=== PATIENT | female | born 1980 | race Caucasian/White ===

== ENCOUNTER 2018-02-03 20:18 | Emergency (ER) | payer SELFPAY ==
[2018-02-03 20:57] VITALS: PULSE 84; RESP 20; TEMP 98.9; O2SAT 99
--- NOTE | 2018-02-03 21:45 | C.PDOC ---
History Of Present Illness 37 y/o female with history of HTN presents to ED with complaints of sore throat and cough for 1 week. Also notes redness to the right eye today. Patient states she saw her PMD for symptoms last week, diagnosed with HTN though no medication given for HTN. Patient states she received cough medicine but symptoms have not improved. Denies fever, headache, chest pain, sob, abdominal pain, UTI symptoms or any other complaints at this time. Time Seen by Provider: 02/03/18 21:30 Chief Complaint (Nursing): Flu-like Symptoms History Per: Patient History/Exam Limitations: no limitations Onset/Duration Of Symptoms: Days Current Symptoms Are (Timing): Still Present Location Of Pain: Throat Associated Symptoms: Sore Throat, Cough Past Medical History Reviewed: Historical Data, Nursing Documentation, Vital Signs Vital Signs: Last Vital Signs Temp 98.9 F 02/03/18 20:48 Pulse 84 02/03/18 20:48 Resp 20 02/03/18 20:48 BP 161/97 H 02/03/18 22:23 Pulse Ox 99 02/08/18 18:21 - Medical History PMH: No Chronic Diseases Surgical History: No Surg Hx Family History: States: No Known Family Hx - Social History Hx Alcohol Use: No Hx Substance Use: No Review Of Systems Constitutional: Negative for: Fever, Chills Eyes: Positive for: Conjunctivae Inflammation, Redness ENT: Positive for: Throat Pain Cardiovascular: Negative for: Chest Pain Respiratory: Positive for: Cough. Negative for: Shortness of Breath Gastrointestinal: Negative for: Nausea, Vomiting Physical Exam - Physical Exam Appears: Non-toxic, No Acute Distress Skin: Warm, Dry, No Rash Head: Atraumatic, Normacephalic Eye(s): bilateral: PERRL, EOMI, right: Other (Conjunctiva injection w/purulent discharge) Ear(s): Bilateral: Normal Nose: Normal Oral Mucosa: Moist Throat: Erythema, No Exudate, No Drooling Neck: Normal ROM, Supple Lymphatic: Normal Exam Chest: Symmetrical Cardiovascular: Rhythm Regular Respiratory: Normal Breath Sounds, No Rales, No Rhonchi, No Wheezing Gastrointestinal/Abdominal: Soft, No Tenderness, No Guarding, No Rebound Neurological/Psych: Oriented x3, Normal Speech, Normal Cognition ED Course And Treatment O2 Sat by Pulse Oximetry: 99 (RA) Pulse Ox Interpretation: Normal Progress Note: On re-evaluation, pt is afebrile . No respiratory distress. NEck supple. No visual changes. ToleratingPO. Discussed with pt untreated HTN risks and pt verbalized understanding. Instructed strict follow up with PMD in 1-2 days or return to ER if symtpoms persist or worsen. Wrapper Stemmer Operator used to ensure understanding. Disposition - Disposition Disposition: HOME/ ROUTINE Disposition Time: 22:11 Condition: STABLE Additional Instructions: Vilma un seguimiento con el pediatra en 1-2 south. Asegrese de volver a verificar carr presin arterial, la presin arterial kiki no tratada aumentar carr riesgo de enfermedad cardaca, diabetes y accidente cerebrovascular. Regrese a la og de emergencias si los sntomas persisten o empeoran. Prescriptions: Amoxicillin 875 mg PO BID #14 tablet Ibuprofen [Motrin] 600 mg PO Q6 PRN #20 tab PRN Reason: Pain, Mild (1-3) Tobramycin [Tobrex] 2 drop OU Q4 5 Days drops Instructions: Sore Throat, Adult (DC) Forms: [place] (Occitan) Print Language: LATVIAN - Clinical Impression Clinical Impression: Conjunctivitis, Pharyngitis - PA / GRAIN PROCESSOR / Resident Statement MD/DO has reviewed & agrees with the documentation as recorded. - Scribe Statement The provider has reviewed the documentation as recorded by the Suibolivier Martinez All medical record entries made by the Suibolivier were at my direction and personally dictated by me. I have reviewed the chart and agree that the record accurately reflects my personal performance of the history, physical exam, medical decision making, and the department course for this patient. I have also personally directed, reviewed, and agree with the discharge instructions and disposition.
[2018-02-03 22:23] VITALS: BP 161/97
== END 2018-02-03 22:34 | disposition home or self-care (01) ==
LOC: C.ER 20:18
DX: J02.9 Acute pharyngitis, unspecified (principal); H10.9 Unspecified conjunctivitis